=== PATIENT | male | born 1965 | race American Indian/Alaskan Native ===

== ENCOUNTER 2019-06-10 07:38 | Emergency (ER) | payer OTHER, MEDICARE ==
[2019-06-10 07:51] VITALS: BP 128/78
[2019-06-10] MEDS ORDERED: dexAMETHasone 20 MG/5 ML VIAL IM ONE (08:07)
[2019-06-10] MEDS ORDERED: COLCHICINE 0.6 MG CAP PO ONE (08:07)
--- NOTE | 2019-06-10 08:35 | Emergency Department Report ---
ED Lower Extremity HPI - General Chief Complaint: Extremity Injury, Lower Stated Complaint: KNEE PAIN Time Seen by Provider: 06/10/19 07:50 Source: patient Mode of arrival: Ambulatory Limitations: No Limitations - History of Present Illness Initial Comments: This is a 54-year-old male nontoxic, well nourished in appearance, no acute signs of distress presents to the ED with c/o of acute on chronic intermittent bilateral knee pain and welling. Staed has history of gout and symptoms are similar to gout flare. Patient denies any injuries or trauma. Patient denies any numbness, tingling, fever, chills, nausea, vomiting, chest pain, shortness of breath, headache, stiff neck. Patient denies any joint swelling or joint redness. Patient denies decreased range of motion. Patient stated has decreased gait due to pain. Patient denies any allergies. PMH includes HTN and gout. MD Complaint: knee injury -: days(s) Injury: Knee: Right, Left Severity: mild Severity scale (0 -10): 8 Improves With: immobilization Worsens With: weight bearing, movement, palpation Associated Symptoms: swelling, able to partially bear weight. denies: snap/pop sensation, numbness, tingling, unable to bear weight - Related Data Previous Rx's Medication Instructions Recorded Last Taken Type Colchicine 0.6 mg PO DAILY #3 capsule 06/10/19 Unknown Rx Naproxen 500 mg PO Q12H PRN #12 tablet 06/10/19 Unknown Rx ED Review of Systems ROS: Stated complaint: KNEE PAIN Other details as noted in HPI Constitutional: denies: chills, fever Eyes: denies: eye pain, eye discharge, vision change ENT: denies: ear pain, throat pain Respiratory: denies: cough, shortness of breath, wheezing Cardiovascular: denies: chest pain, palpitations Endocrine: no symptoms reported Gastrointestinal: denies: abdominal pain, nausea, diarrhea Genitourinary: denies: urgency, dysuria Musculoskeletal: denies: back pain, joint swelling, arthralgia Skin: denies: rash, lesions Neurological: denies: headache, weakness, paresthesias Psychiatric: denies: anxiety, depression Hematological/Lymphatic: denies: easy bleeding, easy bruising ED Past Medical Hx - Past Medical History Previous Medical History?: Yes Hx Hypertension: Yes Additional medical history: gout - Surgical History Past Surgical History?: No - Social History Smoking Status: Never Smoker Substance Use Type: None - Medications Home Medications: Home Medications Medication Instructions Recorded Confirmed Last Taken Type Colchicine 0.6 mg PO DAILY #3 capsule 06/10/19 Unknown Rx Naproxen 500 mg PO Q12H PRN #12 tablet 06/10/19 Unknown Rx ED Physical Exam - General Limitations: No Limitations General appearance: alert, in no apparent distress - Head Head exam: Present: atraumatic, normocephalic - Extremities Exam Extremities exam: Present: normal inspection, full ROM, tenderness, normal capillary refill, joint swelling. Absent: calf tenderness - Expanded Lower Extremity Exam Left Hip exam: Present: normal inspection (bilateral exam), full ROM (bilateral exam). Absent: tenderness, swelling Upper Leg exam: Present: normal inspection (bilateral exam), full ROM (bilateral exam). Absent: tenderness, swelling Knee exam: Present: normal inspection (bilateral exam), full ROM (bilateral exam), tenderness (bilateral exam), swelling (bilateral exam), full knee extension (bilateral exam). Absent: abrasion, laceration, ecchymosis, deformity, crepidus, dislocation, erythema, effusion, pain w/ pronation/supination, posterior draw sign, pain/laxity with valgus, pain/laxity with varus Lower Leg exam: Present: normal inspection (bilateral exam), full ROM (bilateral exam). Absent: tenderness, swelling, Jim's sign Ankle exam: Present: normal inspection (bilateral exam), full ROM (bilateral exam). Absent: tenderness, swelling Foot/Toe exam: Present: normal inspection (bilateral exam), full ROM (bilateral exam). Absent: tenderness, swelling Neuro vascular tendon exam: Present: no vascular compromise (bilateral exam) Gait: Positive: observed and limited by pain (bilateral exam) - Back Exam Back exam: Present: normal inspection, full ROM - Neurological Exam Neurological exam: Present: alert, oriented X3 - Psychiatric Psychiatric exam: Present: normal affect, normal mood - Skin Skin exam: Present: warm, dry, intact, normal color. Absent: rash ED Course Vital Signs 06/10/19 07:44 Temperature 97.5 F L Pulse Rate 59 L Respiratory 18 Rate Blood Pressure 128/78 O2 Sat by Pulse 97 Oximetry - Reevaluation(s) Reevaluation #1: 06/10/19 08:37 Patient is speaking in full sentences with no signs of distress noted. ED Lower Extremity MDM - Medical Decision Making This is a 54-year-old male that presents with gout flare. Patient is stable and was examined by me. No ecchymosis. no joint redness or swelling. Not warm to touch. No signs of cellulites present. No septic joint on exam noted. Patient was instructed to RICE therapy. Patient received Decadron and colchicine for pain. Patient is discharged with colchicine and naproxen. At time of discharge, the patient does not seem toxic or ill in appearance. No acute signs of distress noted. Patient agrees to discharge treatment plan of care. No further questions noted by the patient. Critical care attestation.: If time is entered above; I have spent that time in minutes in the direct care of this critically ill patient, excluding procedure time. ED Disposition Clinical Impression: Gout flare Disposition: DC-01 TO HOME OR SELFCARE Is pt being admited?: No Does the pt Need Aspirin: No Condition: Stable Instructions: Acute Gouty Arthritis (ED) Additional Instructions: Follow-up with a primary care and orthopedic doctor in 3-5 days or if symptoms worsen and continue return to emergency room as soon as possible. Prescriptions: Colchicine 0.6 mg PO DAILY #3 capsule Naproxen 500 mg PO Q12H PRN #12 tablet PRN Reason: pain Referrals: PRIMARY CAREMD [Primary Care Provider] - 3-5 Days HERMELINDA BLUM MD [Staff Physician] - 3-5 Days JACKIE SANTIAGO MD [Staff Physician] - 3-5 Days [facility] [Provider Group] - 3-5 Days Forms: Work/School Release Form(ED)
== END 2019-06-10 08:59 | disposition home or self-care (01) ==
LOC: ED 07:38
DX: M10.9 Gout, unspecified (principal); I10 Essential (primary) hypertension; Z79.899 Other long term (current) drug therapy
CPT/HCPCS: 96372; 99282; J1100